=== PATIENT | female | born 1995 | race Caucasian/White ===

== ENCOUNTER 2016-12-24 18:23 | Emergency (ER) | payer BC ==
[2016-12-24 18:28] VITALS: BP 135/86; PULSE 63; TEMP 99.1; BMI 27.9
--- NOTE | 2016-12-24 19:16 | PDOC ---
History of Present Illness - General History Source: Patient Exam Limitations: No Limitations - History of Present Illness Initial Comments: 12/24/16 19:17 The patient is a 21 year old female, with no significant past medical history who presents to the emergency department with right hand insect bite a couple of days. She reports having pain shooting up her right hand through her right arm into her neck area since the time of the insect bite. She describes the pain as an aching sensation that travels up her entire RUE. She denies any UE numbness and tingling. She denies recent fevers, chills, headache or dizziness. She denies recent nausea, vomit, diarrhea or constipation. She denies recent dysuria, frequency, urgency or hematuria. She denies recent chest pain or shortness of breath. Allergies: NKA Past surgical history: None reported. Social history: Nonsmoker. Denies EtOH use and recreational drug use. <Michael Corrales - Last Filed: 12/24/16 19:36> <Won Nunez - Last Filed: 12/25/16 02:47> - General Chief Complaint: Bite Stated Complaint: RIGHT HAND BITE Time Seen by Provider: 12/24/16 19:15 Past History <Michael Corrales - Last Filed: 12/24/16 19:36> - Past Medical History Asthma: Yes - Immunization History Td Vaccination: Yes Immunization Up to Date: Yes - Psycho/Social/Smoking Cessation Hx Anxiety: No Suicidal Ideation: No Smoking Status: No Smoking History: Never smoked Have you smoked in the past 12 months: No Number of Cigarettes Smoked Daily: 0 Hx Alcohol Use: No Drug/Substance Use Hx: No Substance Use Type: None <Won Nunez - Last Filed: 12/25/16 02:47> - Past Medical History Allergies/Adverse Reactions: Allergies Allergy/AdvReac Type Severity Reaction Status Date / Time No Known Allergies Allergy Verified 12/24/16 18:24 Home Medications: Ambulatory Orders Control 0 mg PO DAILY 12/24/16 Escitalopram Oxalate [Lexapro -] 10 mg PO DAILY 12/24/16 Review of Systems - Review of Systems Able to Perform ROS?: Yes Comments:: 12/24/16 19:17 GENERAL/CONSTITUTIONAL: No: fever, chills, weakness, loss of appetite. HEAD, EYES, EARS, NOSE AND THROAT: No: change in vision, ear pain, discharge, sore throat, throat swelling. CARDIOVASCULAR: No: chest pain, lightheadedness, palpitations, syncope RESPIRATORY: No: cough, shortness of breath, wheezing, hemoptysis, stridor. GASTROINTESTINAL: No: nausea, vomiting, diarrhea, abdominal cramping, rectal bleeding, constipation. GENITOURINARY: No: dysuria, hematuria, frequency, urgency, flank pain. MUSCULOSKELETAL: +right hand pain. No: back pain, neck pain, joint pain, muscle swelling or pain SKIN : No: lesions, pallor, rash or easy bruising. NEUROLOGIC: No: headache, vertigo, paresthesias, weakness ENDOCRINE: No: unexplained weight gain or loss HEMATOLOGIC/LYMPHATIC: No: anemia, easy bleeding, swelling nodes. <Michael Corrales - Last Filed: 12/24/16 19:36> *Physical Exam - Vital Signs Last Vital Signs Temp Pulse Resp BP Pulse Ox 99.1 F 63 18 135/86 100 12/24/16 18:24 12/24/16 18:24 12/24/16 18:24 12/24/16 18:24 12/24/16 18:24 - Physical Exam Comments: 12/24/16 19:36 GENERAL: The patient is in no acute distress. HEAD: Normal with no signs of trauma. EXTREMITIES: Right wrist has half cm blister with non-erythematous base. MUSCULOSKELETAL: Back non-tender to palpation, no CVA tenderness SKIN: Warm, Dry, normal turgor, no rashes or lesions noted. <Michael Corrales - Last Filed: 12/24/16 19:36> - Vital Signs Last Vital Signs Temp Pulse Resp BP Pulse Ox 99.1 F 63 18 135/86 100 12/24/16 18:24 12/24/16 18:24 12/24/16 18:24 12/24/16 18:24 12/24/16 18:24 <Won Nunez - Last Filed: 12/25/16 02:47> Medical Decision Making - Medical Decision Making 12/25/16 02:46 insect bite topical corticosteroids <Won Nunez - Last Filed: 12/25/16 02:47> *DC/Admit/Observation/Transfer - Attestations Scribe Attestion: 12/24/16 19:18 Documentation prepared by Michael Corrales, acting as administrative medical director for Won Nunez MD. <Michael Corrales - Last Filed: 12/24/16 19:36> - Discharge Dispostion Admit: No <Won Nunez - Last Filed: 12/25/16 02:47> Diagnosis at time of Disposition: Insect bite Qualifiers: Encounter type: initial encounter Qualified Code(s): W57.XXXA - Bitten or stung by nonvenomous insect and other nonvenomous arthropods, initial encounter - Discharge Dispostion Disposition: HOME Condition at time of disposition: Stable - Patient Instructions Printed Discharge Instructions: DI for Insect Bites and Stings
== END 2016-12-24 19:19 | disposition home or self-care (01) ==
LOC: FER 18:23
DX: S60.561A Insect bite (nonvenomous) of right hand, initial encounter (principal); W57.XXXA Bitten or stung by nonvenomous insect and other nonvenomous arthropods, initial encounter; Y93.89 Activity, other specified; Y92.9 Unspecified place or not applicable; J45.909 Unspecified asthma, uncomplicated
CPT/HCPCS: 99281-25

== ENCOUNTER 2020-08-13 15:51 | Emergency (ER) | payer BC ==
[2020-08-13 16:20] VITALS: BP 132/94; PULSE 97; TEMP 99.2; BMI 27.8
== END 2020-08-13 16:49 | disposition home or self-care (01) ==
LOC: FER 15:51
DX: R55 Syncope and collapse (principal)
CPT/HCPCS: 93005; 99283-25

== ENCOUNTER 2021-08-25 23:20 | Emergency (ER) | payer BC ==
[2021-08-25 23:27] VITALS: BP 137/80; PULSE 88; TEMP 98.1; BMI 30.2
[2021-08-26] MEDS ORDERED: FAMOTIDINE 20 MG/50 ML IVPB 20 MG/50 ML MG IVPB ONE ×2 (00:41→01:04)
[2021-08-26] MEDS ORDERED: ONDANSETRON 4 MG/2 ML VIAL IVPUSH ONE (00:41)
[2021-08-26] MEDS ORDERED: SODIUM CHLORIDE 1,000 ML IV STA (00:41)
[2021-08-26] MEDS ORDERED: ONDANSETRON 4 MG/2 ML VIAL ONE (01:04)
[2021-08-26 01:55] LABS: BASO % 0.5 % (0-2.0); HEMATOCRIT 35.9 % (32.4-45.2); HEMOGLOBIN 12.9 GM/dL (10.7-15.3); LYMPH % 28.7 % (8-40); MCH 30.8 pg (25.7-33.7); MCHC 35.8 g/dl (32.0-36.0); MEAN PLT VOLUME 8.5 fl (7.5-11.1); MONO % 5.9 % (3.8-10.2); NEUT % 63.9 % (42.8-82.8); PLATELET COUNT 244 10^3/uL (134-434); RBC 4.18 M/mm3 (3.60-5.2); RDW 13.3 % (11.6-15.6)
[2021-08-26 02:16] LABS: CALCIUM 8.9 mg/dL (8.5-10.1)
[2021-08-26 02:17] LABS: ALBUMIN 3.8 g/dl (3.4-5.0); BLOOD UREA NITROGEN 11.2 mg/dL (7-18)
[2021-08-26 02:20] LABS: CREATININE 0.8 mg/dL (0.55-1.3)
[2021-08-26 02:21] LABS: BILIRUBIN,TOTAL 0.3 mg/dL (0.2-1); TOT PROT 7.7 g/dl (6.4-8.2)
[2021-08-26 02:53] LABS: URINE APPEARANCE CLOUDY; URINE BILIRUBIN NEGATIVE (NEGATIVE); URINE COLOR YELLOW; URINE GLUCOSE (UA) NEGATIVE (NEGATIVE); URINE KETONE NEGATIVE (NEGATIVE); URINE LEUK ESTERASE NEGATIVE (NEGATIVE); URINE NITRITE NEGATIVE (NEGATIVE); URINE PROTEIN NEGATIVE (NEGATIVE); URINE UROBILINOGEN 0.2 mg/dL (0.2-1.0)
[2021-08-26 02:58] LABS: HCG,QUALITATIVE URINE Negative
== END 2021-08-26 06:09 | disposition home or self-care (01) ==
LOC: JER 23:20
PROC: 3E033GC Introduction of Other Therapeutic Substance into Peripheral Vein, Percutaneous Approach (ICD-10-PCS; principal; 2021-08-25)
PROC: 3E033GC Introduction of Other Therapeutic Substance into Peripheral Vein, Percutaneous Approach (ICD-10-PCS; 2021-08-25)
PROC: 3E0337Z Introduction of Electrolytic and Water Balance Substance into Peripheral Vein, Percutaneous Approach (ICD-10-PCS; 2021-08-25)
DX: R10.84 Generalized abdominal pain (principal)
CPT/HCPCS: 36415; 74177-TC; 80053; 81003; 83690; 84703; 85025; 99285-25